=== PATIENT | female | born 1955 | race Caucasian/White ===

== ENCOUNTER 2017-10-31 13:12 | Emergency (ER) | payer BC ==
[2017-10-31 14:05] VITALS: BP 160/123
--- NOTE | 2017-10-31 14:59 | UC ---
Abdominal Pain Female HPI - HPI Summary HPI Summary: 62yo female who comes to clinic today complaining of epigastric pain 2 days. It radiates to the back. At its worse it is a 10 out of 10. Now the patient reports the pain is gone. She's had this pain 3 other times this year. Each time it has gone away on its own. She has not seen a medical provider for this pain. No fevers. Food makes it worse. She was at work and her boss wanted to have her get her abdominal pain checked out. The patient did not want to come here. She's had a tubal ligation in the past no other abdominal surgeries. - History of Current Complaint Chief Complaint: UCGI Stated Complaint: STOMACH PAIN Time Seen by Provider: 10/31/17 14:49 Hx Last Menstrual Period: "years ago" Pain Intensity: 6 Allergies/Adverse Reactions: Allergies Allergy/AdvReac Type Severity Reaction Status Date / Time No Known Allergies Allergy Verified 10/31/17 14:06 PMH/Surg Hx/FS Hx/Imm Hx Previously Healthy: No - smoker - Surgical History Surgical History: Yes Surgery Procedure, Year, and Place: trigger finger surgery, tubal, tonsilectomy - Family History Known Family History: Positive: None Negative: Cardiac Disease, Hypertension, Diabetes - Social History Alcohol Use: Occasionally Substance Use Type: None Smoking Status (MU): Heavy Every Day Tobacco Smoker Type: Cigarettes Amount Used/How Often: 1/2 ppd Length of Time of Smoking/Using Tobacco: 40+ yrs Have You Smoked in the Last Year: Yes Review of Systems Constitutional: Negative Skin: Negative Eyes: Negative ENT: Negative Respiratory: Negative Cardiovascular: Negative Gastrointestinal: Other - Epigastric pain Genitourinary: Negative Motor: Negative Neurovascular: Negative Musculoskeletal: Negative Neurological: Negative Psychological: Negative Is Patient Immunocompromised?: No All Other Systems Reviewed And Are Negative: Yes Physical Exam Triage Information Reviewed: Yes Appearance: Well-Appearing, No Pain Distress Vital Signs: Initial Vital Signs Temp 98.6 F 10/31/17 13:53 Pulse 78 10/31/17 13:53 Resp 18 10/31/17 13:53 BP 160/123 10/31/17 13:53 Pulse Ox 100 10/31/17 13:53 Vital Signs Reviewed: Yes ENT Exam: Normal Neck exam: Normal Respiratory: Positive: Lungs clear, Normal breath sounds, No respiratory distress Cardiovascular: Positive: RRR Abdomen Description: Positive: Other: - Mild tenderness to palpation in the epigastrium. Negative: Guarding, Pulsatile Mass Bowel Sounds: Positive: Present Musculoskeletal Exam: Normal Musculoskeletal: Positive: Strength Intact, ROM Intact Neurological Exam: Normal Psychological Exam: Normal Skin Exam: Normal Abd Pain Female Course/Dx - Course Course Of Treatment: The EKG did not show any ischemic changes. The patient denied any chest pain. I discussed going to the emergency department for a epigastric pain workup which can include a cardiac workup. The patient declined. I discussed getting an ultrasound and blood work here at the clinic. The patient declined. We discussed going to the emergency department if her pain returns. Follow-up with PMD. Recheck sooner if worse. - Differential Dx/Diagnosis Provider Diagnoses: Epigastric pain Discharge - Sign-Out/Discharge Documenting (check all that apply): Patient Departure All imaging exams completed and their final reports reviewed: No Studies - Discharge Plan Condition: Stable Disposition: HOME Prescriptions: Omeprazole CAP* [Prilosec CAP* 20 MG] 20 mg PO BID #30 cap. Patient Education Materials: Epigastric Pain (ED) Forms: *Work Release Referrals: [facility] [place] [facility] [Outside] Additional Instructions: FOLLOW UP WITH YOUR DOCTOR. GO TO THE EMERGENCY DEPARTMENT FOR ANY WORSENING OF YOUR CONDITION; PAIN, FEVER , YOU FEEL ILL OR QUESTIONS OR CONCERNS. - Billing Disposition and Condition Condition: STABLE Disposition: Home - Attestation Statements Document Initiated by Shakir: Ryann
== END 2017-10-31 15:19 | disposition home or self-care (01) ==
LOC: UCCORT 13:12
DX: R10.13 Epigastric pain (principal); F17.210 Nicotine dependence, cigarettes, uncomplicated
CPT/HCPCS: 93005; 99212; G0463